=== PATIENT | male | born 1945 | race African-American/Black ===

== ENCOUNTER 2017-09-27 16:28 | Emergency (ER) | payer OTHER, MEDICARE ==
[2017-09-27] MEDS ORDERED: ASPIRIN 81 MG TABLET, CHEWABLE PO ONE (16:46)
--- NOTE | 2017-09-27 16:50 | ER Document Report ---
ED General - General Chief Complaint: Cardiac Arrest Stated Complaint: POSSIBLE POST ARREST Time Seen by Provider: 09/27/17 16:45 Mode of Arrival: Medic Information source: Relative, Emergency Med Personnel Cannot obtain history due to: Intubated, Unstable vital signs Notes: 71-year-old male found down by family presents with cardiac arrest. It is noted that patient had CPR performed for approximately 50 minutes with multiple shocks delivered multiple rounds of epinephrine, patient noted by EMS to be in V. fib V. tach. Patient has been unresponsive since Zane airway was placed History of open heart surgery 5 years ago at [facility] [place]IDE OF THE [place] IN LAST 30 DAYS: No - HPI Onset: Just prior to arrival Onset/Duration: Sudden - Unwitnessed Quality of pain: Other Severity: Severe Pain Level: Denies Associated symptoms: Weakness - Unresponsive Exacerbated by: Denies Relieved by: Denies Similar symptoms previously: No Recently seen / treated by doctor: No - Related Data Allergies/Adverse Reactions: acetaminophen [From Percocet] Allergy (Verified 09/27/17 17:26) oxycodone [From Percocet] Allergy (Verified 09/27/17 17:26) Past Medical History - Social History Smoking Status: Never Smoker Cigarette use (# per day): No Chew tobacco use (# tins/day): No Smoking Education Provided: No Family History: None - Unable to assess due to lack of patient's response Review of Systems - Review of Systems Notes: PHYSICAL EXAMINATION: GENERAL: In extremis. HEAD: Atraumatic, normocephalic. EYES: Pupils equal round and reactive to light ENT: Nares patent, oropharynx clear without exudates. Moist mucous membranes. NECK: Patient is moving neck with breathing LUNGS: Zane airway in place HEART: Bradycardic weak pulses ABDOMEN: Soft, nontender, nondistended abdomen. No guarding, no rebound. No masses appreciated. Musculoskeletal: No range of motion NEUROLOGICAL: GCS 3 intubated SKIN: Warm, Dry, normal turgor, no rashes or lesions noted. -: Yes ROS unobtainable due to patient's medical condition Physical Exam - Vital signs Vitals: Pulse Ox 67 L 09/27/17 16:30 Course - Re-evaluation Re-evalutation: 09/27/17 16:49 pt seen imediately upon ED arrival, noted ot be in sinus rythm Epi drip has been continued, patient's blood pressure is noted to be low It is noted that the patient was switched out from a Zane airway to an 8 endotracheal tube with no difficulty, patient was started on levo fed due to further hypotension 2 L boluses were given EKG was inconclusive for ST elevation , patient did have weak thready pulses which improved after intubation 09/27/17 17:19 pt has been stabilized, family requests transfer to [facility] 09/27/17 17:35 Dr hernandez accepts for transfer 09/27/17 18:35 Blood work hemolyzed twice, transport is here for the patient 09/27/17 20:58 - Vital Signs Vital signs: Temp Pulse Resp BP Pulse Ox 25 H 93/76 L 98 09/27/17 18:25 09/27/17 18:25 09/27/17 18:25 - Laboratory Result Diagrams: 09/27/17 16:35 09/27/17 16:35 Laboratory results interpreted by me: 09/27/17 16:35 WBC 3.1 L RBC 4.11 L MCV 115 H MCH 36.0 H MCHC 31.2 L RDW 17.1 H Plt Count 103 L Seg Neuts % (Manual) 30 L Band Neutrophils % 1 L Lymphocytes % (Manual) 52 H Abs Neuts (Manual) 1.0 L Procedures - Intubation Orotracheal Time of Intubation: 16:43 Airway evaluation: Large tongue Mallampati Classification: Class 4 Medications: Other - No medications used Intubation method: Orotracheal Blade type: Segundo Blade size: 4 ETT size: 8.0 ETT secured at: Teeth ETT secured at (cm): 25 Breath Sounds after Intubation: Equal End tidal CO2 confirmed: Yes Post Intubation Xray: Yes Intubation Complications: No complications Critical Care Note - Critical Care Note Total time excluding time spent on procedures (mins): 59 Comments: 59 minutes of critical care time spent in direct contact evaluating and reevaluating the patient, treating symptoms, reviewing labs and studies and speaking with family and consultants excluding any procedures Discharge - Discharge Clinical Impression: Cardiac arrest, Hypothermia protocol Hypotension Qualifiers: Hypotension type: unspecified hypotension type Qualified Code(s): I95.9 - Hypotension, unspecified Condition: Critical Disposition: [facility]
[2017-09-27] MEDS ORDERED: DEXTROSE 5%-WATER 250 ML with NOREPINEPHRINE BITARTRATE 4 MG IV PRN ×2 (16:58)
[2017-09-27 17:00] LABS: HEMATOCRIT 47.3 % (37.9-51.0); HEMOGLOBIN 14.8 g/dL (13.5-17.0); MEAN CORPUSCULAR HGB CONC 31.2 g/dL (32.0-36.0); MEAN CORPUSCULAR VOLUME 115 fl (80-97); PLATELET COUNT 103 10^3/uL (150-450); RED BLOOD COUNT 4.11 10^6/uL (4.35-5.55); RED CELL DISTRIBUTION WIDTH 17.1 % (11.5-14.0); WHITE BLOOD COUNT 3.1 10^3/uL (4.0-10.5)
[2017-09-27] MEDS ORDERED: DEXTROSE 5%-WATER 250 ML with EPINEPHRINE/PF 1 MG IV PRN ×2 (17:06)
[2017-09-27] MEDS: NORMAL SALINE 1000 ML 1,000 ML IV SCH ×3 (17:09→17:40)
--- NOTE | 2017-09-27 17:12 | RADIOLOGY REPORT (SQ) ---
EXAM DESCRIPTION: CHEST SINGLE VIEW COMPLETED DATE/TIME: 09/27/2017 5:02 pm REASON FOR STUDY: post intubation COMPARISON: 10/13/2010 EXAM PARAMETERS: NUMBER OF VIEWS: One view. TECHNIQUE: Single frontal radiographic view of the chest acquired. RADIATION DOSE: NA LIMITATIONS: None. FINDINGS: LUNGS AND PLEURA: There is greater opacification in the left lung compared to the right. No mass is seen. MEDIASTINUM AND HILAR STRUCTURES: No masses. Contour normal. HEART AND VASCULAR STRUCTURES: Heart normal in size. Normal vasculature. BONES: No acute findings. HARDWARE: An endotracheal tube has its tip about 3 cm above the arabella. An NG tube extends just insi de the stomach. Sternotomy wires are present. Some type of neural stimulator overlies the spine. OTHER: No other significant finding. IMPRESSION: There is the appearance of mild pulmonary edema that is somewhat asymmetrical. Tube sherri cement as described. TECHNICAL DOCUMENTATION: JOB ID: [id number] [employer]- All Rights Reserved Reading location - IP/workstation name: [email or web address]
[2017-09-27] MEDS ORDERED: MIDAZOLAM HCL 50 MG/100 ML RTUINJ IV PRN (17:15)
[2017-09-27] MEDS ORDERED: MIDAZOLAM HCL 50 MG/100 ML RTUINJ IV ONE (17:16)
[2017-09-27 17:22] LABS: ABSOLUTE LYMPHOCYTES# (MANUAL) 1.9 10^3/uL (0.5-4.7); ABSOLUTE MONOCYTES # (MANUAL) 0.2 10^3/uL (0.1-1.4); BAND NEUTROPHILS % (MANUAL) 1 % (3-5); BASOPHILS % (MANUAL) 0 % (0-2); EOSINOPHILS % (MANUAL) 3 % (0-6); LYMPHOCYTES % (MANUAL) 52 % (13-45); MONOCYTES % (MANUAL) 6 % (3-13); NUCLEATED RED BLOOD CELLS 2 /100 WBC (0); SEGMENTED NEUTROPHILS % (MAN) 30 % (42-78); TOTAL CELLS COUNTED 100
[2017-09-27 17:23] LABS: TOXIC GRANULATION SLIGHT
[2017-09-27 17:24] LABS: ANISOCYTOSIS 1+; BURR CELLS SLIGHT; OVALOCYTES SLIGHT; PLATELET COMMENT DECREASED; POIKILOCYTOSIS SLIGHT
[2017-09-27 18:39] VITALS: BP 93/76
--- NOTE | 2017-09-27 22:05 | EKG REPORT ---
SEVERITY:- ABNORMAL ECG - ACCELERATED JUNCTIONAL RHYTHM NONSPECIFIC INTRAVENTRICULAR CONDUCTION DELAY LATERAL INFARCT, AGE INDETERMINATE CONSIDER ANTERIOR INFARCT, ACUTE : Confirmed by: Anjali Balderas 27-Sep-2017 22:04:18
[2017-09-28 11:37] LABS: PATH REVIEW PATHOLOGIST REVIEWED
== END 2017-09-27 18:50 | disposition short-term general hospital (02) ==
LOC: ER 16:28
DX: I46.9 Cardiac arrest, cause unspecified (principal); I95.9 Hypotension, unspecified; Z88.6 Allergy status to analgesic agent; Z88.5 Allergy status to narcotic agent
CPT/HCPCS: 93005; 99291; 51702; 96365; 96366; 36415; 85025; 71045; 93010; 31500; J0171; J3490; J2250; J7060; J7030